=== PATIENT | female | born 1995 | race American Indian/Alaskan Native ===

== ENCOUNTER 2018-05-30 06:20 | Outpatient (CLI) | payer MEDICAID ==
[2018-05-30] MEDS ORDERED: LACTATED RINGERS 1,000 ML IV ONE (06:56)
[2018-05-30 07:25] LABS: Bacteria,Urine 1+ /HPF (Negative); Hyaline Casts,Urine 1 /LPF; Mucus,Urine FEW /HPF
[2018-05-30 07:29] LABS: Bilirubin,Urine NEG (Negative); Blood,Urine NEG (Negative); Color,Urine Yellow (Yellow); Protein,Urine <15 mg/dL mg/dL (Negative); Urobilinogen,Urine < 2.0 mg/dL (<2.0)
[2018-05-30 08:29] VITALS: BP 124/79
== END 2018-05-30 08:54 | disposition home or self-care (01) ==
LOC: TRG 06:20
PROVIDERS: ATTEND Obstetrics & Gynecology
DX: O62.9 Abnormality of forces of labor, unspecified (principal); Z3A.34 34 weeks gestation of pregnancy
CPT/HCPCS: 59025; 81001; 96360; 96361; J7120